=== PATIENT | female | born 1995 | race Caucasian/White ===

== ENCOUNTER 2019-08-13 23:31 | Emergency (ER) | payer SELFPAY ==
[~2019-08-13] VITALS: Ht 162.6 cm; Wt 129.7 kg
--- NOTE | 2019-08-13 23:41 | NUR ---
PT [id number]. FROM STREET. INTOXICATED. R ORBITAL ABBRASSION S/P FALL, PT IS AAOX3, NOT IN RESPIRATORY DISTRESS, HOOKED TO MONITOR, KEPT RESTED AND COMFORTABLE, WILL CONTINUE TO MONITOR.
--- NOTE | 2019-08-13 23:41 | NUR ---
SEEN AND EXAMINED BY .
--- NOTE | 2019-08-14 00:15 | NUR ---
PT IS BACK FROM THE CT SCAN.
--- NOTE | 2019-08-14 04:47 | NUR ---
PT ASLEEP ON BED, EASILY AROUSABLE, NOT IN RESPIRATORY DISTRESS, V/S STABLE, KEPT RESTED AND COMFORTABLE, WILL CONTINUE TO MONITOR.
[2019-08-14 06:15] VITALS: BP 119/68
--- NOTE | 2019-08-14 06:15 | NUR ---
Patient discharged to home in stable condition. Written and verbal after care instructions given. Patient verbalizes understanding of instruction.
== END 2019-08-14 06:16 | disposition home or self-care (01) ==
LOC: ER 23:36
DX: S00.212A Abrasion of left eyelid and periocular area, initial encounter (principal); S00.81XA Abrasion of other part of head, initial encounter; F10.129 Alcohol abuse with intoxication, unspecified; R51 Headache; Y90.9 Presence of alcohol in blood, level not specified; W18.39XA Other fall on same level, initial encounter; Y93.89 Activity, other specified; Y92.89 Other specified places as the place of occurrence of the external cause; Y99.8 Other external cause status
CPT/HCPCS: 70450; 70486; 99284; A6403